=== PATIENT | female | born 1950 | race Caucasian/White ===

== ENCOUNTER 2019-02-25 17:26 | Inpatient (IN) | payer MEDICARE, MEDICAID ==
[~2019-02-25] VITALS: Ht 167.6 cm; Wt 43.0 kg
[~2019-02-25 17:26] MED LIST: MIDAZOLAM 1 MG/ML, 5ML ONE; PROPOFOL 10 MG/ML, 100ML IV ONE
[2019-02-25] MEDS ORDERED: FENTANYL PF 100 MCG/2ML ONE (17:32)
[2019-02-25] MEDS ORDERED: MIDAZOLAM HCL 25 MG in SODIUM CHLORIDE 0.9% 245 ML IV PRN (17:34)
--- NOTE | 2019-02-25 17:38 | NUR ---
SHANEKA JESUS IS ON HIS WAY FROM [place] AT THIS TIME.
[2019-02-25] MEDS ORDERED: PLEASE ENTER HEIGHT AND WEIGHT MC SCH (18:00)
[2019-02-25] MEDS ORDERED: MIDAZOLAM 1 MG/ML, 2ML IVPush ONE (18:00)
[2019-02-25] MEDS ORDERED: FENTANYL PF 100 MCG/2ML IV ONE (18:00)
[2019-02-25] MEDS ORDERED: PLEASE ENTER ALLERGIES MC SCH (18:00)
[2019-02-25 18:34] LABS: ALANINE AMINOTRANSFERASE 13 U/L (12-78); ALBUMIN 3.2 g/dL (3.4-5.0); ANION GAP 4 mmol/L (5-15); BASOPHILS # (AUTO) 0.05 x10^3/uL (0-0.1); BASOPHILS % (AUTO) 0 % (0-1); CALCIUM 8.2 mg/dL (8.5-10.1); CHLORIDE 101 mmol/L (98-107); CREATININE 0.52 mg/dL (0.55-1.02); EOSINOPHILS # (AUTO) 0.02 x10^3/uL (0-0.4); EOSINOPHILS % (AUTO) 0 % (1-7); LYMPHOCYTES # (AUTO) 0.86 x10^3/uL (1-3.4); LYMPHOCYTES % (AUTO) 8 % (22-44); MD NO; MEAN CORPUSCULAR HEMOGLOBIN 28.4 pg (27.0-34.8); MEAN CORPUSCULAR HGB CONC 32.7 g/dL (32.4-35.8); MEAN CORPUSCULAR VOLUME 86.9 fL (80-100); MONOCYTES # (AUTO) 0.19 x10^3/uL (0.2-0.8); MONOCYTES % (AUTO) 2 % (2-9); NEUTROPHILS # (AUTO) 10.14 x10^3/uL (1.8-6.8); NEUTROPHILS % (AUTO) 90 % (42-75); PLATELET COUNT 256 x10^3/uL (130-400); RED BLOOD COUNT 4.15 x10^6/uL (3.82-5.3); RED CELL DISTRIBUTION WIDTH 15.3 % (9.6-15.2)
[2019-02-25 18:39] LABS: ALKALINE PHOSPHATASE 77 U/L (45-117); BILIRUBIN,TOTAL 0.2 mg/dL (0.2-1.0); TOTAL PROTEIN 6.9 g/dL (6.4-8.2); TROPONIN I < 0.015 ng/mL (0.000-0.045)
[2019-02-25] MEDS ORDERED: BISACODYL 10 MG SUPP PR PRN (19:00)
[2019-02-25] MEDS ORDERED: SENNA/DOCUSATE TABLET NG PRN (19:00)
[2019-02-25] MEDS ORDERED: FENTANYL PF 100 MCG/2ML IVPush PRN (19:00)
[2019-02-25] MEDS ORDERED: SENNA 176 MG/5 ML ORAL SOL NG PRN (19:00)
[2019-02-25] MEDS ORDERED: DEXTROSE 4 GM TAB.CHEW PO PRN (19:00)
[2019-02-25] MEDS ORDERED: PHARMACY MAY ADJ FOR RENAL FX MC SCH (19:00)
[2019-02-25] MEDS ORDERED: LIDOCAINE-MPF 1%, 2ML ENDO PRN (19:00)
[2019-02-25] MEDS ORDERED: LACTULOSE 20 GM/30 ML UDC NG PRN (19:00)
[2019-02-25] MEDS ORDERED: DEXTROSE 50%, 50ML SYRINGE IVPush PRN (19:00)
[2019-02-25] MEDS: ALBUTEROL/IPRATROPIUM 2.5MG/0.5MG, 3 ML INLINE SCH ×2 (19:00→23:00)
[2019-02-25] MEDS ORDERED: GLUCAGON 1 MG IM PRN (19:00)
--- NOTE | 2019-02-25 19:15 | NUR ---
RECEIVED REPORT FROM KENISHA REZA. PT RESTING CALMLY ON VENT, WITH SEDATION. ENDOTRACHEAL TUBE 7.5 SIZE, IS 25 AT LIP. SEE CHARTED VITALS. PT IN HOSPITAL GOWN. RODRIGUEZ IN PLACE AND OG TO LOW INTERMITTANT SUCTION.
[2019-02-25 19:24] LABS: TRIGLYCERIDES 58 mg/dL (50-200)
[2019-02-25 19:29] LABS: TROPONIN I < 0.015 ng/mL (0.000-0.045)
--- NOTE | 2019-02-25 19:29 | NUR ---
REPORT TO ROBI REZA FOR ROOM 546
[2019-02-25] MEDS ORDERED: ALBU18HF INH (19:37)
[2019-02-25] MEDS ORDERED: CILO100T PO (19:37)
[2019-02-25] MEDS ORDERED: PARO40TA3 PO (19:37)
[2019-02-25] MEDS ORDERED: ARFO15VI NEB (19:37)
[2019-02-25] MEDS ORDERED: OXYB15TA PO (19:37)
[2019-02-25] MEDS ORDERED: ESTR30CR TP (19:37)
[2019-02-25] MEDS ORDERED: IPRA0.2S35 INH (19:37)
[2019-02-25] MEDS ORDERED: FLUT1DIS5 IH (19:37)
[2019-02-25] MEDS ORDERED: LISI-170 PO (19:37)
[2019-02-25] MEDS ORDERED: VARE1TAB21 PO (19:37)
[2019-02-25] MEDS ORDERED: HYDR-3241 PO (19:37)
[2019-02-25] MEDS ORDERED: POLY17PO29 PO (19:37)
[2019-02-25] MEDS ORDERED: ALEN70TA6 PO (19:37)
[2019-02-25] MEDS ORDERED: ASPI-496 PO (19:37)
[2019-02-25] MEDS ORDERED: BUDE1AMP INH (19:37)
[2019-02-25] MEDS ORDERED: GABA300C10 PO (19:37)
--- NOTE | 2019-02-25 19:42 | NUR ---
MOO DOC IN ROOM, HAS INCREASED RESP RATE TO 14.
[2019-02-25] MEDS: PROPOFOL 100 ML IV PRN (19:52)
[2019-02-25 19:58] LABS: INTERNATIONAL NORMALIZED RATIO 0.96 (0.93-1.1); PROTHROMBIN TIME 10.1 Seconds (9.6-11.5)
[2019-02-25] MEDS: SODIUM CHLORIDE 0.9% 1,000 ML IV SCH (20:57)
[2019-02-25] MEDS: FAMOTIDINE 20 MG/2 ML IV SCH (20:57)
[2019-02-25] MEDS: methylPREDNISolone SOD SUCC 125 MG/2 ML IVPush SCH (20:57)
[2019-02-25] MEDS: HEPARIN 5,000 UNITS/ML, 1ML SQ SCH (20:57)
[2019-02-25] MEDS: BUDESONIDE 0.5 MG/2 ML INHA INH SCH (21:00)
[2019-02-25] MEDS: LEVOFLOXACIN/PMX 750MG/150ML 150 ML IV SCH (21:11)
[2019-02-25] MEDS: INSULIN LISPRO 100 UNITS/ML, PEN SQ-INSULIN SCH (21:11)
[2019-02-25] MEDS: SODIUM CHLORIDE FLUSH 10ML SYR IVF SCH (21:12)
[2019-02-25 21:32] LABS: MICROSCOPIC INDICATED
[2019-02-25 21:33] LABS: CULTURE INDICATED? NO
[2019-02-25 21:37] LABS: AMPHETAMINE SCREEN, URINE Negative (Negative); BARBITURATE SCREEN, URINE Negative (Negative); BENZODIAZEPINE SCREEN, URINE Positive (Negative); CANNABINOID SCREEN, URINE Negative (Negative); COCAINE SCREEN, URINE Negative (Negative); METHADONE SCREEN, URINE Negative (Negative); OPIATE SCREEN, URINE Negative (Negative)
[2019-02-25 21:41] LABS: RAPID INFLUENZA A Negative (Negative); RAPID INFLUENZA B Negative (Negative)
[2019-02-26 00:50] LABS: TROPONIN I < 0.015 ng/mL (0.000-0.045)
[2019-02-26] MEDS: ALBUTEROL/IPRATROPIUM 2.5MG/0.5MG, 3 ML INLINE SCH ×6 (03:00→22:20)
[2019-02-26 04:37] LABS: ALANINE AMINOTRANSFERASE 10 U/L (12-78); ALBUMIN 2.8 g/dL (3.4-5.0); ANION GAP 8 mmol/L (5-15); BASOPHILS # (AUTO) 0.03 x10^3/uL (0-0.1); BASOPHILS % (AUTO) 1 % (0-1); CALCIUM 8.2 mg/dL (8.5-10.1); CHLORIDE 104 mmol/L (98-107); CREATININE 0.38 mg/dL (0.55-1.02); EOSINOPHILS % (AUTO) 0 % (1-7); LYMPHOCYTES % (AUTO) 19 % (22-44); MD NO; MEAN CORPUSCULAR HEMOGLOBIN 28.5 pg (27.0-34.8); MEAN CORPUSCULAR HGB CONC 32.8 g/dL (32.4-35.8); MEAN CORPUSCULAR VOLUME 86.8 fL (80-100); MEAN PLATELET VOLUME 7.8 fL (7.4-10.4); MONOCYTES # (AUTO) 0.14 x10^3/uL (0.2-0.8); MONOCYTES % (AUTO) 3 % (2-9); NEUTROPHILS % (AUTO) 78 % (42-75); PLATELET COUNT 265 x10^3/uL (130-400); RED BLOOD COUNT 3.88 x10^6/uL (3.82-5.3); RED CELL DISTRIBUTION WIDTH 15.3 % (9.6-15.2)
[2019-02-26 04:39] LABS: ALKALINE PHOSPHATASE 68 U/L (45-117); BILIRUBIN,TOTAL 0.2 mg/dL (0.2-1.0); TOTAL PROTEIN 6.4 g/dL (6.4-8.2)
[2019-02-26] MEDS: methylPREDNISolone SOD SUCC 125 MG/2 ML IVPush SCH (04:51)
[2019-02-26] MEDS: PROPOFOL 100 ML IV PRN ×4 (04:51→23:44)
[2019-02-26] MEDS: HEPARIN 5,000 UNITS/ML, 1ML SQ SCH ×3 (04:51→20:16)
[2019-02-26] MEDS: BUDESONIDE 0.5 MG/2 ML INHA INH SCH ×2 (06:34→22:20)
[2019-02-26] MEDS: INSULIN LISPRO 100 UNITS/ML, PEN SQ-INSULIN SCH ×4 (07:00→20:16)
[2019-02-26] MEDS: FAMOTIDINE 20 MG/2 ML IV SCH ×2 (09:14→20:16)
[2019-02-26] MEDS: SODIUM CHLORIDE FLUSH 10ML SYR IVF SCH ×2 (09:16→20:07)
[2019-02-26] MEDS: SODIUM CHLORIDE 0.9% 1,000 ML IV SCH (09:18)
[2019-02-26] MEDS ORDERED: LORazepam 2 MG/ML, 1ML ONE (09:54)
[2019-02-26] MEDS ORDERED: LORazepam 2 MG/ML, 1ML IVPush ONE (10:00)
[2019-02-26] MEDS ORDERED: PHARMACOKINETIC MONITORING MC PRN (12:00)
[2019-02-26] MEDS ORDERED: PHARMACOKINETIC CONSULTATION MC ONE (13:00)
[2019-02-26] MEDS ORDERED: VANCOMYCIN PER PHARMACY MC PRN (13:00)
--- NOTE | 2019-02-26 13:12 | NUR ---
TF recommendations begin as trickle and advance per osmolite 1.2 ON propofol 40 ml/hr OFF propofol 45 ml/hr
[2019-02-26] MEDS: methylPREDNISolone SOD SUCC 40 MG/ML IVPush SCH ×2 (13:40→20:16)
[2019-02-26] MEDS: VANCOMYCIN 800 MG in SODIUM CHLORIDE 0.9% 100 ML IV SCH (13:44)
[2019-02-26] MEDS ORDERED: LORazepam 2 MG/ML, 1ML IVPush PRN ×2 (15:00→16:30)
[2019-02-26] MEDS ORDERED: SODIUM CHLORIDE 0.9%, 500ML IVBOLUS ONE (16:00)
[2019-02-26] MEDS ORDERED: SODIUM CHLORIDE 0.9% 1,000 ML IV SCH (19:00)
[2019-02-26] MEDS: LEVOFLOXACIN/PMX 750MG/150ML 150 ML IV SCH (20:25)
[2019-02-27] MEDS: ALBUTEROL/IPRATROPIUM 2.5MG/0.5MG, 3 ML INLINE SCH ×6 (02:19→22:45)
[2019-02-27] MEDS: HEPARIN 5,000 UNITS/ML, 1ML SQ SCH ×3 (04:27→21:33)
[2019-02-27] MEDS: methylPREDNISolone SOD SUCC 40 MG/ML IVPush SCH ×3 (04:27→21:32)
[2019-02-27 04:36] LABS: BASOPHILS # (AUTO) 0.01 x10^3/uL (0-0.1); BASOPHILS % (AUTO) 0 % (0-1); EOSINOPHILS % (AUTO) 0 % (1-7); LYMPHOCYTES # (AUTO) 0.99 x10^3/uL (1-3.4); LYMPHOCYTES % (AUTO) 21 % (22-44); MD NO; MEAN CORPUSCULAR HGB CONC 33.6 g/dL (32.4-35.8); MEAN CORPUSCULAR VOLUME 86.5 fL (80-100); MEAN PLATELET VOLUME 7.7 fL (7.4-10.4); MONOCYTES # (AUTO) 0.42 x10^3/uL (0.2-0.8); MONOCYTES % (AUTO) 9 % (2-9); NEUTROPHILS # (AUTO) 3.25 x10^3/uL (1.8-6.8); NEUTROPHILS % (AUTO) 70 % (42-75); PLATELET COUNT 247 x10^3/uL (130-400); RED CELL DISTRIBUTION WIDTH 15.9 % (9.6-15.2)
[2019-02-27 04:48] LABS: ANION GAP 7 mmol/L (5-15); CALCIUM 8.2 mg/dL (8.5-10.1); CHLORIDE 110 mmol/L (98-107)
[2019-02-27] MEDS: BUDESONIDE 0.5 MG/2 ML INHA INH SCH ×2 (06:32→22:45)
[2019-02-27] MEDS: INSULIN LISPRO 100 UNITS/ML, PEN SQ-INSULIN SCH ×4 (07:00→21:00)
[2019-02-27] MEDS: PROPOFOL 100 ML IV PRN ×3 (07:54→22:51)
[2019-02-27] MEDS: SODIUM CHLORIDE FLUSH 10ML SYR IVF SCH ×2 (10:28→21:35)
[2019-02-27] MEDS: FAMOTIDINE 20 MG/2 ML IV SCH (10:28)
[2019-02-27] MEDS: VANCOMYCIN 800 MG in SODIUM CHLORIDE 0.9% 100 ML IV SCH (14:03)
[2019-02-27] MEDS: LEVOFLOXACIN/PMX 750MG/150ML 150 ML IV SCH (21:35)
[2019-02-28] MEDS: ALBUTEROL/IPRATROPIUM 2.5MG/0.5MG, 3 ML INLINE SCH ×3 (02:38→10:20)
[2019-02-28] MEDS: PROPOFOL 100 ML IV PRN (04:09)
[2019-02-28 04:39] LABS: BASOPHILS # (AUTO) 0.01 x10^3/uL (0-0.1); BASOPHILS % (AUTO) 0 % (0-1); EOSINOPHILS % (AUTO) 0 % (1-7); LYMPHOCYTES # (AUTO) 0.54 x10^3/uL (1-3.4); LYMPHOCYTES % (AUTO) 9 % (22-44); MD NO; MEAN CORPUSCULAR HEMOGLOBIN 28.2 pg (27.0-34.8); MEAN CORPUSCULAR HGB CONC 32.5 g/dL (32.4-35.8); MEAN CORPUSCULAR VOLUME 86.7 fL (80-100); MEAN PLATELET VOLUME 7.8 fL (7.4-10.4); MONOCYTES # (AUTO) 0.17 x10^3/uL (0.2-0.8); MONOCYTES % (AUTO) 3 % (2-9); NEUTROPHILS # (AUTO) 5.08 x10^3/uL (1.8-6.8); NEUTROPHILS % (AUTO) 88 % (42-75); PLATELET COUNT 265 x10^3/uL (130-400); RED BLOOD COUNT 4.09 x10^6/uL (3.82-5.3); RED CELL DISTRIBUTION WIDTH 16.3 % (9.6-15.2)
[2019-02-28 04:48] LABS: ANION GAP 6 mmol/L (5-15); CALCIUM 8.6 mg/dL (8.5-10.1); CHLORIDE 109 mmol/L (98-107)
[2019-02-28] MEDS: hydrALAzine 20 MG/ML, 1ML IV PRN (04:50)
[2019-02-28 04:51] LABS: CREATININE 0.43 mg/dL (0.55-1.02); TRIGLYCERIDES 137 mg/dL (50-200)
[2019-02-28] MEDS: methylPREDNISolone SOD SUCC 40 MG/ML IVPush SCH ×3 (05:07→21:10)
[2019-02-28] MEDS: HEPARIN 5,000 UNITS/ML, 1ML SQ SCH ×3 (05:08→21:10)
[2019-02-28] MEDS: INSULIN LISPRO 100 UNITS/ML, PEN SQ-INSULIN SCH ×4 (06:22→21:00)
[2019-02-28] MEDS: BUDESONIDE 0.5 MG/2 ML INHA INH SCH ×2 (06:58→19:04)
[2019-02-28] MEDS: SODIUM CHLORIDE FLUSH 10ML SYR IVF SCH ×2 (09:18→21:09)
[2019-02-28] MEDS: FAMOTIDINE 20 MG/2 ML IV SCH (09:18)
[2019-02-28] MEDS: LISINOPRIL 20 MG TABLET PO SCH (09:18)
[2019-02-28] MEDS ORDERED: ALBUTEROL/IPRATROPIUM 2.5MG/0.5MG, 3 ML ONE (11:50)
[2019-02-28] MEDS: ALBUTEROL/IPRATROPIUM 2.5MG/0.5MG, 3 ML NEB SCH ×4 (11:54→22:30)
[2019-02-28] MEDS: VANCOMYCIN 800 MG in SODIUM CHLORIDE 0.9% 100 ML IV SCH (12:37)
[2019-03-01 04:25] LABS: BASOPHILS % (AUTO) 1 % (0-1); EOSINOPHILS # (AUTO) 0.06 x10^3/uL (0-0.4); EOSINOPHILS % (AUTO) 1 % (1-7); LYMPHOCYTES # (AUTO) 1.07 x10^3/uL (1-3.4); LYMPHOCYTES % (AUTO) 13 % (22-44); MD NO; MEAN CORPUSCULAR HEMOGLOBIN 28.3 pg (27.0-34.8); MEAN CORPUSCULAR HGB CONC 32.5 g/dL (32.4-35.8); MEAN PLATELET VOLUME 8.1 fL (7.4-10.4); MONOCYTES % (AUTO) 5 % (2-9); NEUTROPHILS # (AUTO) 6.94 x10^3/uL (1.8-6.8); NEUTROPHILS % (AUTO) 81 % (42-75); PLATELET COUNT 261 x10^3/uL (130-400); RED BLOOD COUNT 4.02 x10^6/uL (3.82-5.3); RED CELL DISTRIBUTION WIDTH 15.7 % (9.6-15.2)
[2019-03-01 04:33] LABS: ANION GAP 5 mmol/L (5-15); CALCIUM 8.6 mg/dL (8.5-10.1); CHLORIDE 110 mmol/L (98-107); CREATININE 0.42 mg/dL (0.55-1.02)
[2019-03-01] MEDS: methylPREDNISolone SOD SUCC 40 MG/ML IVPush SCH (05:25)
[2019-03-01] MEDS: HEPARIN 5,000 UNITS/ML, 1ML SQ SCH ×3 (05:25→22:25)
[2019-03-01] MEDS: ALBUTEROL/IPRATROPIUM 2.5MG/0.5MG, 3 ML NEB SCH ×5 (06:00→22:28)
[2019-03-01] MEDS: hydrALAzine 20 MG/ML, 1ML IV PRN (06:12)
[2019-03-01] MEDS: INSULIN LISPRO 100 UNITS/ML, PEN SQ-INSULIN SCH ×4 (06:14→21:58)
[2019-03-01] MEDS: FAMOTIDINE 20 MG/2 ML IV SCH (07:40)
[2019-03-01] MEDS: LISINOPRIL 20 MG TABLET PO SCH (07:41)
[2019-03-01] MEDS: SODIUM CHLORIDE FLUSH 10ML SYR IVF SCH ×2 (07:41→22:25)
[2019-03-01] MEDS ORDERED: methylPREDNISolone SOD SUCC 40 MG/ML IVPush SCH (10:00)
[2019-03-01] MEDS: BUDESONIDE 0.5 MG/2 ML INHA INH SCH ×2 (10:55→21:07)
[2019-03-01] MEDS: VANCOMYCIN 800 MG in SODIUM CHLORIDE 0.9% 100 ML IV SCH (13:22)
[2019-03-01 18:35] VITALS: BP 137/68
[2019-03-02 01:57] VITALS: BP 149/76
[2019-03-02] MEDS: BUDESONIDE 0.5 MG/2 ML INHA INH SCH ×2 (06:00→18:43)
[2019-03-02] MEDS: ALBUTEROL/IPRATROPIUM 2.5MG/0.5MG, 3 ML NEB SCH ×6 (06:00→20:00)
[2019-03-02] MEDS: HEPARIN 5,000 UNITS/ML, 1ML SQ SCH ×3 (06:00→22:52)
[2019-03-02 06:06] LABS: ANION GAP 5 mmol/L (5-15); CALCIUM 8.2 mg/dL (8.5-10.1); CHLORIDE 106 mmol/L (98-107)
[2019-03-02 06:08] LABS: CREATININE 0.34 mg/dL (0.55-1.02)
[2019-03-02 06:13] LABS: BASOPHILS # (AUTO) 0.08 x10^3/uL (0-0.1); BASOPHILS % (AUTO) 1 % (0-1); EOSINOPHILS # (AUTO) 0.08 x10^3/uL (0-0.4); EOSINOPHILS % (AUTO) 1 % (1-7); LYMPHOCYTES # (AUTO) 4.16 x10^3/uL (1-3.4); LYMPHOCYTES % (AUTO) 35 % (22-44); MD NO; MEAN CORPUSCULAR HEMOGLOBIN 27.8 pg (27.0-34.8); MEAN CORPUSCULAR HGB CONC 32.3 g/dL (32.4-35.8); MEAN CORPUSCULAR VOLUME 86.1 fL (80-100); MONOCYTES # (AUTO) 0.82 x10^3/uL (0.2-0.8); MONOCYTES % (AUTO) 7 % (2-9); NEUTROPHILS % (AUTO) 57 % (42-75); PLATELET COUNT 235 x10^3/uL (130-400); RED CELL DISTRIBUTION WIDTH 15.7 % (9.6-15.2)
[2019-03-02] MEDS: INSULIN LISPRO 100 UNITS/ML, PEN SQ-INSULIN SCH ×4 (07:00→20:01)
[2019-03-02] MEDS: VANCOMYCIN 800 MG in SODIUM CHLORIDE 0.9% 100 ML IV SCH (07:57)
[2019-03-02] MEDS: SODIUM CHLORIDE FLUSH 10ML SYR IVF SCH ×2 (07:57→21:33)
[2019-03-02] MEDS: LISINOPRIL 20 MG TABLET PO SCH (07:57)
[2019-03-02 08:47] VITALS: BP 127/61
[2019-03-02] MEDS ORDERED: POTASSIUM CHLORIDE 20 MEQ TAB.ER.PRT PO ONE (11:00)
[2019-03-02 15:58] VITALS: BP 103/58
[2019-03-02 18:49] VITALS: BP 146/84
[2019-03-02] MEDS: LEVOFLOXACIN/PMX 750MG/150ML 150 ML IV SCH (21:33)
[2019-03-03 01:12] VITALS: BP 161/82
[2019-03-03 01:20] VITALS: BP 150/79
[2019-03-03] MEDS: VANCOMYCIN 800 MG in SODIUM CHLORIDE 0.9% 100 ML IV SCH (02:01)
[2019-03-03 05:51] LABS: BASOPHILS # (AUTO) 0.04 x10^3/uL (0-0.1); BASOPHILS % (AUTO) 0 % (0-1); EOSINOPHILS # (AUTO) 0.16 x10^3/uL (0-0.4); EOSINOPHILS % (AUTO) 2 % (1-7); LYMPHOCYTES # (AUTO) 3.74 x10^3/uL (1-3.4); LYMPHOCYTES % (AUTO) 39 % (22-44); MD NO; MEAN CORPUSCULAR HEMOGLOBIN 28.1 pg (27.0-34.8); MEAN CORPUSCULAR HGB CONC 32.5 g/dL (32.4-35.8); MEAN CORPUSCULAR VOLUME 86.3 fL (80-100); MEAN PLATELET VOLUME 7.6 fL (7.4-10.4); MONOCYTES # (AUTO) 0.73 x10^3/uL (0.2-0.8); MONOCYTES % (AUTO) 8 % (2-9); NEUTROPHILS # (AUTO) 4.83 x10^3/uL (1.8-6.8); NEUTROPHILS % (AUTO) 51 % (42-75); PLATELET COUNT 215 x10^3/uL (130-400); RED BLOOD COUNT 4.07 x10^6/uL (3.82-5.3); RED CELL DISTRIBUTION WIDTH 15.7 % (9.6-15.2)
[2019-03-03 06:02] LABS: CHLORIDE 103 mmol/L (98-107)
[2019-03-03 06:22] LABS: ANION GAP 3 mmol/L (5-15); CALCIUM 8.7 mg/dL (8.5-10.1); CREATININE 0.36 mg/dL (0.55-1.02)
[2019-03-03] MEDS: HEPARIN 5,000 UNITS/ML, 1ML SQ SCH ×3 (06:36→22:00)
[2019-03-03] MEDS: INSULIN LISPRO 100 UNITS/ML, PEN SQ-INSULIN SCH ×4 (07:00→21:00)
[2019-03-03] MEDS: BUDESONIDE 0.5 MG/2 ML INHA INH SCH ×2 (07:45→18:38)
[2019-03-03] MEDS: ALBUTEROL/IPRATROPIUM 2.5MG/0.5MG, 3 ML NEB SCH ×5 (07:45→18:38)
[2019-03-03 08:08] VITALS: BP 151/76
[2019-03-03] MEDS: LISINOPRIL 20 MG TABLET PO SCH (08:29)
[2019-03-03] MEDS: SODIUM CHLORIDE FLUSH 10ML SYR IVF SCH ×2 (08:30→21:00)
[2019-03-03 12:38] VITALS: BP 143/77
[2019-03-03] MEDS ORDERED: LISI-170 PO (15:00)
[2019-03-03] MEDS ORDERED: LEVO750T6 PO (15:04)
[2019-03-03 20:16] VITALS: BP 133/78
[2019-03-04] MEDS: HEPARIN 5,000 UNITS/ML, 1ML SQ SCH ×3 (06:16→22:00)
[2019-03-04 06:29] LABS: ALANINE AMINOTRANSFERASE 36 U/L (12-78); ALBUMIN 2.7 g/dL (3.4-5.0); ANION GAP 3 mmol/L (5-15); CALCIUM 8.4 mg/dL (8.5-10.1); CHLORIDE 101 mmol/L (98-107)
[2019-03-04 06:31] LABS: ALKALINE PHOSPHATASE 45 U/L (45-117); BILIRUBIN,TOTAL 0.2 mg/dL (0.2-1.0); TOTAL PROTEIN 5.5 g/dL (6.4-8.2)
[2019-03-04 07:07] LABS: BASOPHILS # (AUTO) 0.01 x10^3/uL (0-0.1); BASOPHILS % (AUTO) 0 % (0-1); EOSINOPHILS # (AUTO) 0.19 x10^3/uL (0-0.4); EOSINOPHILS % (AUTO) 2 % (1-7); LYMPHOCYTES # (AUTO) 4.52 x10^3/uL (1-3.4); LYMPHOCYTES % (AUTO) 47 % (22-44); MD NO; MEAN CORPUSCULAR HEMOGLOBIN 27.9 pg (27.0-34.8); MEAN CORPUSCULAR HGB CONC 32.7 g/dL (32.4-35.8); MEAN CORPUSCULAR VOLUME 85.4 fL (80-100); MEAN PLATELET VOLUME 8.2 fL (7.4-10.4); MONOCYTES # (AUTO) 0.67 x10^3/uL (0.2-0.8); MONOCYTES % (AUTO) 7 % (2-9); NEUTROPHILS # (AUTO) 4.26 x10^3/uL (1.8-6.8); NEUTROPHILS % (AUTO) 44 % (42-75); PLATELET COUNT 220 x10^3/uL (130-400); RED BLOOD COUNT 3.84 x10^6/uL (3.82-5.3); RED CELL DISTRIBUTION WIDTH 15.9 % (9.6-15.2)
[2019-03-04] MEDS: BUDESONIDE 0.5 MG/2 ML INHA INH SCH ×2 (07:19→20:17)
[2019-03-04] MEDS: LISINOPRIL 20 MG TABLET PO SCH (08:21)
[2019-03-04] MEDS: SODIUM CHLORIDE FLUSH 10ML SYR IVF SCH ×2 (09:00→20:53)
[2019-03-04 09:03] VITALS: BP 123/60
[2019-03-04] MEDS: ALBUTEROL/IPRATROPIUM 2.5MG/0.5MG, 3 ML NEB SCH ×3 (11:00→20:00)
[2019-03-04 14:23] VITALS: BP 123/64
[2019-03-04] MEDS ORDERED: LEVO750T6 PO (14:55)
[2019-03-04 20:17] VITALS: BP 118/76
[2019-03-04] MEDS: LEVOFLOXACIN/PMX 750MG/150ML 150 ML IV SCH (20:53)
[2019-03-05 00:28] VITALS: BP 124/69
[2019-03-05] MEDS: HEPARIN 5,000 UNITS/ML, 1ML SQ SCH (06:00)
[2019-03-05 06:45] VITALS: BP 176/93
[2019-03-05] MEDS: BUDESONIDE 0.5 MG/2 ML INHA INH SCH (06:51)
[2019-03-05] MEDS: ALBUTEROL/IPRATROPIUM 2.5MG/0.5MG, 3 ML NEB SCH (06:51)
[2019-03-05] MEDS: SODIUM CHLORIDE FLUSH 10ML SYR IVF SCH (08:27)
[2019-03-05] MEDS: LISINOPRIL 20 MG TABLET PO SCH (08:27)
== END 2019-03-05 12:01 | disposition home health service (06) | DRG 208 ==
LOC: ED 18:10 → EDIP 18:11 → ED 18:26 → CCU 20:24 → 3N 03-01 15:03
PROVIDERS: ADMIT Internal Medicine; ATTEND Hospitalist
PROC: 5A1945Z Respiratory Ventilation, 24-96 Consecutive Hours (ICD-10-PCS; principal; 2019-02-25)
PROC: 0T9B70Z Drainage of Bladder with Drainage Device, Via Natural or Artificial Opening (ICD-10-PCS; 2019-02-25)
DX: J96.22 Acute and chronic respiratory failure with hypercapnia (principal); J15.1 Pneumonia due to Pseudomonas; J15.4 Pneumonia due to other streptococci; J44.1 Chronic obstructive pulmonary disease with (acute) exacerbation; Z99.11 Dependence on respirator [ventilator] status; E87.2 Acidosis; I50.32 Chronic diastolic (congestive) heart failure; J44.0 Chronic obstructive pulmonary disease with (acute) lower respiratory infection; R64 Cachexia; Z68.1 Body mass index [BMI] 19.9 or less, adult; R78.81 Bacteremia; J96.21 Acute and chronic respiratory failure with hypoxia; D63.8 Anemia in other chronic diseases classified elsewhere; E86.0 Dehydration; E87.6 Hypokalemia; G89.4 Chronic pain syndrome; I11.0 Hypertensive heart disease with heart failure; M81.0 Age-related osteoporosis without current pathological fracture; Z88.0 Allergy status to penicillin; Z99.81 Dependence on supplemental oxygen
CPT/HCPCS: 36415; 36600; 71045; 80048; 80053; 80202; 80307; 81001; 82375; 82607; 82728; 82803; 82962; 83540; 83550; 83605; 83735; 83880; 84100; 84145; 84443; 84478; 84484; 85025; 85610; 85730; 87040; 87070; 87077; 87081; 87184; 87186; 87205; 87400; 93005; 93306; 94002; 94003; 94640; 96374; 96375; 99291; G0378; J1644; J1956; J2250; J2704; J3010; J3370; J7620; J7626; J0360; J1815; J2060; J2920; J2930; J3490; J7030; J7040; J7050; J7512